=== PATIENT | female | born 1965 | race African-American/Black ===

== ENCOUNTER → 2021-10-17 | Outpatient (CLI) | payer MEDICAID ==
[~2021-10-17] VITALS: Ht 175.3 cm; Wt 54.5 kg
[~2021-10-17] MED LIST: LIDOCAINE 1% INJ 50 ML (XYLOCAINE) VIAL IJ ONE
--- NOTE | 2021-10-17 14:33 | Diagnostic Imaging Report ---
Indication: Right breast consultations. Patient presents for stereotactic biopsy. Patient brought is stereotactic suite placed in chair in sitting upright position. The right breast was positioned mediolateral. Stereotactic and tomographic imaging of the right breast was performed. Medial right breast was then prepped and draped usual sterile fashion. Small amount 1% lidocaine was utilized for local anesthesia. A 8 gauge vacuum-assisted needle was advanced into the right breast via a mediolateral approach and placed per stereotactic coordinates. Total of 4 core biopsies were obtained. Specimen radiograph demonstrates calcifications within the sample labeled numbers 2, 3, 4 and 5. Marker clip was then deployed. All images were viewed on dedicated workstation. Needle was removed and hemostasis was obtained using manual compression. Patient tolerated procedure well and left department in stable condition. Post procedure radiograph does show a marker clip in the upper right breast on MLO view. It is not well-seen on the CC view. IMPRESSION: Successful stereotactic biopsy right breast calcifications, as described utilizing the vacuum-assisted device. Pathology results are currently pending. Dictated by: Dictated on workstation # [id number]
== END ==
LOC: RAD 10:05
PROVIDERS: ATTEND Psychologist
DX: R92.1 Mammographic calcification found on diagnostic imaging of breast (principal)
CPT/HCPCS: 19081